=== PATIENT | male | born 1935 | race Caucasian/White ===

== ENCOUNTER 2023-01-08 17:44 | Emergency (ER) | payer OTHER ==
[~2023-01-08] VITALS: Ht 172.7 cm; Wt 63.5 kg
[2023-01-08] MEDS ORDERED: DIATR MEGLU/DIATRIZOATE SODIUM 30 ML BOTTLE (GASTROGRAPHIN) ONE (18:42)
[2023-01-09 02:22] VITALS: BP 95/63; TEMP 98.7; O2SAT 98
== END 2023-01-09 00:30 | disposition short-term general hospital (02) ==
LOC: ER 17:46
DX: K94.23 Gastrostomy malfunction (principal); I48.91 Unspecified atrial fibrillation; Z85.850 Personal history of malignant neoplasm of thyroid
CPT/HCPCS: 99285; 43762; 74018; Q9963